=== PATIENT | female | born 1945 | race Caucasian/White ===

== ENCOUNTER 2016-12-22 01:25 | Day surgery (SDC) | payer MEDICARE ==
[~2016-12-22] VITALS: Ht 170.2 cm; Wt 63.5 kg
[~2016-12-22 01:25] MED LIST: CALC-952 PO; FOLI1TAB18 PO; HYDR25TA4 PO; LEFL20TA18 PO; LEVO88TA4 PO; LOSA100T3 PO; METH2.5T PO; TRAZ-115 PO
[2016-12-22] MEDS ORDERED: Sodium Chloride LOK Flush 10 mL Syringe IV PRN (09:15)
[2016-12-22] MEDS ORDERED: fentaNYL-PF 50 mCg/mL 2 mL Inj IVPUSH PRN (09:15)
[2016-12-22 11:21] VITALS: BP 137/88; PULSE 78; RESP 14; O2SAT 98
[2016-12-22] MEDS: 0.9% Sodium Chloride 1,000 ML IV PRN ×2 (11:59→12:35)
[2016-12-22 12:52] VITALS: BP 119/70; PULSE 72; RESP 12; O2SAT 98
[2016-12-22 13:01] VITALS: BP 122/74; PULSE 68; RESP 12; O2SAT 97
[2016-12-22 13:16] VITALS: BP 117/71; PULSE 70; RESP 12; O2SAT 99
--- NOTE | 2016-12-22 16:39 | ENDO ---
[address] [address] ENDOSCOPY PROCEDURE PATIENT: ELLIE NOLASCO : 1945 MR#: [id number] ADMIT: 12/22/2016 JOB ID: [id number] DATE OF SERVICE: 12/22/2016 PROCEDURE: Esophagogastroduodenoscopy with biopsies and a colonoscopy with biopsies. INDICATIONS: A 71-year-old female with multifocal abdominal pain and diarrhea. She has a history of ulcerations in the terminal ileum that were originally thought to possibly be secondary to excessive NSAID use. However, she denies any NSAIDs and the above symptoms persist. Therefore repeat EGD was pursued today. EQUIPMENT: GIFH-180J and a PCFH-180AL SEDATION: 6 mg Versed, 150 mcg fentanyl. COMPLICATIONS: None identified. BOWEL PREPARATION: Fair, adequate exam. PROCEDURE INFORMATION: After the risks and benefits were explained, written and verbal informed consent was obtained. The patient was brought into the endoscopy suite and placed into the left lateral decubitus position. Sedation was achieved as above. The scope was introduced into the mouth through the bite block, and advanced to the second portion of the duodenum. The scope was slowly withdrawn to carefully examine the mucosa for any defects or lesions. Retroflexed views were accomplished in the stomach. The stomach was decompressed. The scope removed from the patient who tolerated the procedure well. The patient was then turned around. A digital rectal examination was accomplished. This revealed the presence of grade 3 and even some grade 4 nonbleeding, nonthrombosed hemorrhoids. The scope was introduced into the rectum and advanced under direct visualization to the cecum as identified by the appendiceal orifice and ileocecal valve. The terminal ileum was interrogated. The scope then slowly withdrawn to carefully examine the mucosa for any defects or lesions. Multiple direct views were made through the dentate line for exclusion of pathology. The colon was decompressed. The scope removed. The patient tolerated the procedure well. FINDINGS: 1. Duodenum: The patient had three large diverticula in the proximal duodenum without any ulceration, mass lesions or inflammatory foci. Considering the patient's symptoms, random biopsies were taken from D2 for exclusion of underlying sprue. 2. Stomach: No mass lesions. No ulcers. There were scattered erosive changes all throughout the pre-pyloric and antral region. One of these areas was sampled for histopathology/exclusion of H. pylori. Otherwise, the stomach was fairly unremarkable including retroflexed views of the LES. 3. Esophagus: The squamocolumnar junction correlated with the top of the gastric folds. The GEJ was at about 37 cm from the incisors. No acute erosive changes. No strictures. No mass lesions. Very subtle sliding hiatal hernia. The remainder of the esophagus appeared unremarkable. 4. Terminal ileum: There were scattered ulcerations all throughout the TI. There was minimal stenosis at the level of the IC valve opening but I could fairly easily intubate with the endoscope. Biopsies were acquired from the terminal ileum for repeat histologic analysis. 5. Colon: There was a single small superficial ulcer in the cecum which was targeted for biopsy. Otherwise, I did not see any significant inflammatory features throughout the large bowel. Random colon biopsies were taken from somewhere in the transverse. There were some mild diverticulosis in the left colon. The patient had a fairly tortuous navigation through the sigmoid. No polyps or mass lesions identified throughout. ENDOSCOPIC DIAGNOSES: 1. Subtle sliding hiatal hernia. 2. Erosive gastropathy. 3. Large duodenal diverticula. 4. Terminal ileal ulcerations. 5. Ileocecal valve ulceration. 6. Cecal superficial subtle ulceration. 7. Mild diverticulosis. 8. Colon tortuosity. 9. Grade 3 and 4 hemorrhoids. RECOMMENDATIONS: 1. Await histopathology. 2. Continue to avoid NSAID therapy. 3. Fiber supplementation with 2 tablespoons of ground flaxseed fiber mixed with 8 ounces of the medium of patient's choice, at least once daily would be appropriate. 4. The patient is provided a course of budesonide. 5. Follow up short term in GI clinic to evaluate clinical response and likely start other medications that can be used in long-term maintenance (this appears to be consistent with mild Crohn's). 6. Additionally, I have encouraged a course of Culturelle probiotic therapy.
--- NOTE | 2016-12-23 11:55 | PATH ---
SURGICAL PATHOLOGY Attending Physician:Xochitl Goldstein CASE STATUS: Signed Out PATIENT NAME: ELLIE NOLASCO PID: [id number] : 1945 DATE COLLECTED:12/22/2016 20:20 SPECIMEN: 1: Gastric, Biopsy 2: Duodenum, Biopsy 3: Ileum, Biopsy 4: Colon, Biopsy 5: Colon, Biopsy CLINICAL HISTORY: ABDOMINAL PAIN, DIARRHEA, GASTRITIS, TERMINAL ILEUM ULCERATION, CECAL EROSION 1). GASTRIC BIOPSY 2). DUODENAL BIOPSY 3). TERMINAL ILEUM BIOPSY 4). CECAL BIOPSY 5). RANDOM COLON BIOPSY FINAL DIAGNOSIS: 1.GASTRIC BIOPSY: REACTIVE GASTROPATHY, ANTRAL MUCOSA, WITH FOCAL EROSION. Negative for Helicobacter organisms. Negative for intestinal metaplasia. Negative for dysplasia and malignancy. 2.DUODENAL BIOPSY: DUODENAL MUCOSA WITH NO DIAGNOSTIC ALTERATIONS. Negative for inflammation, sprue, dysplasia, and malignancy. 3.TERMINAL ILEUM BIOPSY: CHRONIC ACTIVE INFLAMMATION, ULCERATION, AND SINGLE GRANULOMA, SEE COMMENT. Negative for dysplasia and malignancy. 4.CECAL BIOPSY: MILD CHRONIC ACTIVE INFLAMMATION WITH FOCAL ULCERATION. Negative for granulomas. Negative for dysplasia and malignancy. 5.RANDOM COLON BIOPSY: COLONIC MUCOSA WITH NO DIAGNOSTIC ALTERATIONS. Negative for inflammation, dysplasia and malignancy. ICD10 code K29.70 K52.3 NOTE: The ileal mucosa biopsies show a chronic active inflammatory infiltrate with ulceration and a single noncaseating granuloma in the lamina propria. The cecal biopsy shows similar inflammation with focal ulceration but no granulomas. There is active cryptitis with focal distortion of architecture in the cecal mucosa. These histologic features raise a differential diagnosis of Crohn' s disease, medication toxicity, and infection. Correlation with clinical and endoscopic findings is necessary for a definitive diagnosis. This case was reviewed by Dr. Katelyn Sanchez, who concurs with the interpretation. GROSS DESCRIPTION: The specimen is received in five formalin filled containers labeled with the patient's name. 1). The specimen is sublabeled "gastric" and consists of a 0.3 x 0.3 x 0.2 CM portion of tissue which is entirely submitted in cassette 1A. 2). The specimen is sublabeled "duodenal" and consists of 2 portions of tissue which aggregate to 0.3 x 0.3 x 0.3 CM. The specimen is entirely submitted in cassette 2A. 3). The specimen is sublabeled " TI " and consists of 3 extremely tiny portions of tissue which aggregate to 0.1 x 0.1 x 0.1 CM the specimen is entirely submitted in cassette 3A. 4). The specimen is sublabeled "cecal" and consists of a 0.3 x 0.2 x 0.2 CM portion of tissue which is entirely submitted in cassette 4A. 5). The specimen is sublabeled "random colon" and consists of a 0.2 x 0.2 x 0.2 CM portion of tissue which is entirely submitted in cassette 5A. 12/22/2016 DAC MICRO DESCRIPTION: See diagnosis. ICD-9 CODES: CPT CODES: 1: 26355 2: 82583 3: 30887 4: 96869 5: 11719 Electronically Signed Out Yeni Bartholomew MD [facility] [address], [place] [address] Technical component performed at [facility], [facility] [address], [place], [address]
== END 2016-12-22 23:59 | disposition home or self-care (01) ==
LOC: END 01:25
PROVIDERS: ATTEND Internal Medicine Gastroenterology
DX: K29.70 Gastritis, unspecified, without bleeding (principal); K52.3 Indeterminate colitis; K44.9 Diaphragmatic hernia without obstruction or gangrene; K31.9 Disease of stomach and duodenum, unspecified; K57.30 Diverticulosis of large intestine without perforation or abscess without bleeding; K22.10 Ulcer of esophagus without bleeding; K64.3 Fourth degree hemorrhoids; R10.13 Epigastric pain; R11.10 Vomiting, unspecified; R19.7 Diarrhea, unspecified; I10 Essential (primary) hypertension; E03.9 Hypothyroidism, unspecified; M19.90 Unspecified osteoarthritis, unspecified site; K21.9 Gastro-esophageal reflux disease without esophagitis; M06.9 Rheumatoid arthritis, unspecified
CPT/HCPCS: 43239; 45380; 88305; 99153; G0500; J7030